=== PATIENT | female | born 1965 | race Caucasian/White ===

== ENCOUNTER → 2018-01-25 | Outpatient (CLI) | payer OTHER ==
--- NOTE | 2018-01-30 12:35 | SLEEP ---
DATE OF STUDY: OBJECTIVE: The patient is a 52-year-old female with excessive somnolence, who has been wearing an oral appliance for possible sleep apnea. Therefore, the sleep studies were done at home with the patient using her oral device on 01/25 and without the oral device on 01/26. Height 64 inches, weight 135 pounds, body mass index 23.2. [place] sleep score 13. INTERPRETATION: On the first night with the oral device, the apnea-hypopnea index is 2.7 events per hour of sleep. The minimum oxygen saturation was 90%. No significant cardiac arrhythmias were observed. There was snoring during 4.9% of the sleep time. IMPRESSION: Normal home sleep study showing no significant sleep disordered breathing with the patient using her oral appliance. 01/26 study: OBJECTIVE: On this study, done without her oral appliance, she still only has an apnea-hypopnea index of 3.4 events per hour of sleep. Minimum oxygen saturation is 91%. Snoring occurs 4.2% of the time. No significant cardiac arrhythmias are observed. IMPRESSION: Sleep parameters remain normal without her oral appliance and there is no evidence of sleep-disordered breathing. Thank you for letting us to help with the patient's care. DEION SMITH MD DR: ELIU/gareth JOB#: [id number] / [id number] CONSUELO Hooper MD
== END | disposition home or self-care (01) ==
LOC: RT 06:17
PROVIDERS: ATTEND Family Medicine
DX: R40.0 Somnolence (principal); G47.10 Hypersomnia, unspecified
CPT/HCPCS: G0399

== ENCOUNTER → 2018-08-22 | Outpatient (CLI) | payer OTHER ==
--- NOTE | 2018-08-22 11:51 | KCIC ---
THYROID ULTRASOUND History: Thyroid nodule Comparison: None. Findings: Multiple sonographic images of the thyroid gland are submitted. Right lobe measured 4.5 x 1.4 x 1.5 cm. Left lobe measured 3.4 x 1 x 1.3 cm. Isthmus measured 0.13 cm in thickness. There is heterogeneity of the thyroid gland bilaterally. There is a heterogeneous, complex small nodule of the inferior right gland about 0.5 x 0.3 x 0.5 cm, some internal vascularity on color Doppler imaging. There is no asymmetric hypervascularity of the thyroid gland. Impression: 1. There is a small complex solid nodule up to 0.5 cm of the inferior right thyroid gland, no previous exam to evaluate for change. There is nonspecific heterogeneity of the thyroid parenchyma bilaterally. Electronically signed by: Jd San MD (08/22/2018 11:49 AM) [email or web address]
== END | disposition home or self-care (01) ==
LOC: KCIC US 10:49
PROVIDERS: ATTEND Family Medicine
DX: E04.1 Nontoxic single thyroid nodule (principal)
CPT/HCPCS: 76536

== ENCOUNTER → 2019-03-20 | Outpatient (CLI) | payer OTHER ==
--- NOTE | 2019-03-20 16:04 | KCIC ---
THYROID ULTRASOUND History: Thyroid nodule follow-up Comparison: August 22, 2018 Findings: Multiple sonographic images of the thyroid gland are submitted. Right lobe measured 4 x 1.7 x 1.6 cm. Isthmus measured 0.1 cm in AP thickness. Left lobe measured 3.2 x 1.2 x 0.9 cm. There is oblong solid appearing nodule of the inferior right gland about 0.5 x 0.5 x 0.4 cm in size, mild vascularity at the periphery on color Doppler imaging, size and morphology overall similar. There is other heterogeneity of the thyroid gland bilaterally. Impression: 1. Size and morphology small inferior right thyroid nodule is stable compared with August 26, 2018 exam. Electronically signed by: Jd San MD (03/20/2019 4:00 PM) [id number]
== END | disposition home or self-care (01) ==
LOC: KCIC US 15:26
PROVIDERS: ATTEND Surgery
DX: E04.1 Nontoxic single thyroid nodule (principal)
CPT/HCPCS: 76536

== ENCOUNTER → 2019-04-02 | Outpatient (CLI) | payer OTHER ==
--- NOTE | 2019-04-03 14:10 | KCIC ---
BILATERAL SCREENING MAMMOGRAM History: Routine screening. Comparison: Bilateral mammogram 03/31/2012. Technique: Routine bilateral digital mammogram views were obtained. Findings: Breast Tissue Density C : The breasts are heterogeneously dense, which may obscure small masses. There are no dominant masses, suspicious microcalcifications, or architectural distortion. IMPRESSION: No mammographic evidence of malignancy. Recommend routine screening. BI-RADS category 1: Negative. The images were reviewed with computer aided detection. Patient information is entered into the reminder system with a target due date for the next screening mammogram. Mammography is the most sensitive method for finding small breast cancers, but it does not detect them all and is not a substitute for careful clinical examination. A negative mammogram does not negate a clinically suspicious finding and should not result in delay in biopsying a clinically suspicious abnormality. "Our facility is accredited by the [employer] Mammography Program." Electronically signed by: Toan Christine MD (04/03/2019 2:07 PM) [id number]
== END | disposition home or self-care (01) ==
LOC: KCIC MAMMO 15:10
PROVIDERS: ATTEND Family Medicine
DX: Z12.31 Encounter for screening mammogram for malignant neoplasm of breast (principal); N64.89 Other specified disorders of breast
CPT/HCPCS: 77067